=== PATIENT | male | born 1995 | race Caucasian/White ===

== ENCOUNTER 2024-10-03 09:20 | Outpatient (AMB) | payer OTHER, SELFPAY ==
--- NOTE | 2024-10-03 09:23 | A.OFFPC_ITS ---
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 Required: No Accompanied by: Self / Same As Patient Allergies No Known Allergies Allergy (Verified 10/03/24 10:44) Medication List - Last Reconciled 10/03/24 by Loida Mitchell PA-C No Known Home Meds Tobacco use date assessed: 10/03/24 Dental Screening Dental Screen Date: 10/03/24 Did you have a dental visit in the last 12 months?: No Did you have a dental problem in the last 6 months where you did not have access to dental care?: No Was dental information given to patient?: Patient has dentist HPI establish care HPI Details The patient is a 29-year-old male presenting for a annual physical examination in addition an assessment for Attention-Deficit/Hyperactivity Disorder (ADHD). The patient has not had a primary care provider since seeing Dr. Ky Akers in pediatrics and is now establishing care with a new provider. He has not pursued an ADHD diagnosis previously but is considering it due to his girlfriend's suggestion, who is a coding and reimbursement specialist. The patient reports no significant past medical history but mentions a family history of breast cancer in his mother, who is still alive. He denies any current symptoms of depression or anxiety but is open to seeing a psychiatrist for ADHD assessment. The patient has not had recent blood work and agrees to comprehensive testing, including CBC, CMP, lipid panel, liver panel, thyroid function, PSA, vitamin B12, and vitamin D. He is physically active, having previously engaged in regular running and exercise, and expresses a desire to return to these activities. 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 - Education: Previously studied criminal justice, now pursuing a career in teaching. - Family Status: Lives with girlfriend, who is a coding and reimbursement specialist. - Exercise: Previously engaged in regula r running and exercise, plans to resume. [facility] Medical History (Updated 10/03/24 @ 11:34 by Loida Mitchell PA-C) Preventative health care Annual physical exam ADHD Family History Father Afib Mother History of heart attack Social History Housing: House Patient Tobacco Use Status: Never used Tobacco service: No Current occupational status: employed Cognitive needs: No Hearing needs: No Vision needs: No Questionnaire PHQ-9 Over the last 2 weeks, how often have you been bothered by any of the following problems? 1. Little interest or pleasure in doing things: not at all 2. Feeling down, depressed, or hopeless: not at all 3. Trouble falling or staying asleep, or sleeping too much: not at all 4. Feeling tired or having little energy: not at all 5. Poor appetite or overeating: not at all 6. Feeling bad about yourself - or that you are a failure or have let yourself or your family down: not at all 7. Trouble concentrating on things, such as reading the newspaper or watching television: not at all 8. Moving or speaking so slowly that other people could have noticed. Or the opposite - being so fidgety or restless that you have been moving around a lot more than usual: not at all 9. Thoughts that you would be better off or of hurting yourself in some way: not at all Total score: 0 Depression Screening Interpretation: Negative Depression Screening Done: Yes 09777 - PHQ-9 Billing: Yes Source: Developed by Drs. Boyd Kirk, Kimberly Erickson, Bobby Osorio and colleagues, with an educational milton from [employer]. Thrive Questionnaire Date Thrive assessed: 10/03/24 I am a: Patient What is your living situation today?: I have a steady place to live Within the past 12 months, did the food you bought not last and you didn't have the money to get more?: Never true Within the past 12 months, did you worry whether your food would run out before you got money to buy more?: Never true Do you have trouble paying for medicines?: No Do you have trouble getting transportation to medical appointments?: No Do you have trouble paying your heating and electricity bill?: No Do you have trouble taking care of your child, family member or friend?: No Do you have trouble with day-to-day activities such as bathing, preparing meals, shopping, managing finances, etc.?: No Are you currently unemployed and looking for a job?: No Are you interested in more education?: No Please select the resources that you would like help with: None Currently or been in a relationship where the following occur: No concerns reported THRIVE Score: 0 AUDIT C Alcohol Use Questionnaire (AUDIT-C) 1. How often do you have a drink containing alcohol?: Never 3. How often do you have six or more drinks on one occasion?: Never Total Score: 0 Score Reviewed/Action Taken: No LYNNE-7 AMB Questionnaire LYNNE-7 Date LYNNE - 7 assessed: 10/03/24 Feeling nervous, anxious, or on edge: 0 = Not at all Not being able to stop or control worryin = Not at all Worrying too much about different things: 0 = Not at all Trouble relaxin = Not at all Being so restless that it is hard to sit still: 0 = Not at all Becoming easily annoyed or irritable: 0 = Not at all Feeling afraid as if something awful might happen: 0 = Not at all Total LYNNE-7 score (0-4 normal; 5-9 mild; 10-14 moderate; 15-21 severe): 0 Source: Developed by Drs. Boyd Kirk, Kimberly Erickson, Bobby Osorio and colleagues, with an educational milton from [employer]. LYNNE-7 Assessment Billing LYNNE-7 Assessment Tool: LYNNE-7 Assessment 20465 Review of Systems Const Details: - General: Denies unintentional weight loss. - Cardiovascular: Denies chest pain or palpitations. - Respiratory: Denies dyspnea or cough. - Gastrointestinal: Denies abdominal pain, black or bloody stools. - Genitourinary: Denies dysuria or hematuria. - Neurological: Denies headaches or dizziness. All systems reviewed & are unremarkable except as noted in HPI and below Physical exam (Primary Care) Vital Signs: Last Vital Signs Temp 97 F 10/03/24 09:30 Pulse 69 10/03/24 09:30 Resp 16 10/03/24 09:30 BP 108/56 L 10/03/24 09:30 Pulse Ox 100 10/03/24 09:30 Oxygen Delivery Method Room Air 10/03/24 09:30 Care Plan Goal for BP management: <140/90 at goal BMI result Body Mass Index 26.9 BMI Assessment/Plan discussion: High BMI High, discussed plan: lifestyle, weight reduction, dietary, physical activity, alcohol moderation and other Tobacco/Smoking Status: Tobacco use Status Tobacco use date assessed 10/03/24 10/03/24 09:26 Patient Tobacco Use Status Never used Tobacco 10/03/24 09:26 PHQ-9: PHQ-9 Score PHQ-9: Total score 0 10/03/24 09:33 Depression Screening Interpretation: Negative Thrive Assessment: Date of Thrive Assessment Date Thrive assessed 10/03/24 10/03/24 09:26 Currently or been in a relationship where the following occur: No concerns reported Const Other: Appearance: Alert. Oriented X3. No acute distress. Head: Normal external exam. Normocephalic. Atraumatic. Eyes: Pupils are equal, round, and reactive to light. Extraocular movements intact. Conjunctiva and sclera normal. Eyelids normal. Ears: External auditory canal normal. Tympanic membranes normal. Ears are very clean with no significant wax buildup. Throat: Pharynx normal. Uvula midline. Moist mucous membranes. Neck: Normal inspection. Neck supple. Full range of motion. No adenopathy. Thyroid Normal. No meningeal signs. No neck mass noted. Cardiovascular: Normal heart rate and rhythm. Heart sound normal. No murmurs noted. Pulses normal throughout. Blood pressure is a little low, possibly due to skipping coffee. Respiratory: No respiratory distress. Painless inspiration. Breath sounds normal. No wheezes/rales/rhonchi noted. Chest nontender. No accessory muscle usage noted or decreased air movement noted. Abdomen: Soft and nontender. Bowel sounds normal in all 4 quadrants. No distention noted. No organomegaly noted. No visible injury noted. No pain over the kidneys when tapped. No black or bloody stools. No unintentional weight loss. Back: No costovertebral angle tenderness. Full range of motion noted. Skin: Skin warm and dry. Normal skin color. Normal skin turgor. No rashes/lesions/lacerations noted. Extremities: No lower extremity edema. Extremities exhibit normal range of motion. Extremities nontender. Calves are well-developed, indicating regular exercise. Neuro: Oriented X 3. No motor deficit. No sensory deficit. Reflexes normal. Coding Level of Care Code New Pt Level 4 (03613) New Pt Prev Care 18-39yr(71190 Diagnoses Annual physical exam Z00.00 ADHD F90.9 Preventative health care Z00.00 Additional Codes PHQ-9 - 22687 - PHQ-9 Billing: Yes ([id number]) LYNNE-7 Assessment Billing - LYNNE-7 Assessment Tool: LYNNE-7 Assessment 52290 ([id number]) Assessment & Plan Assessment & Plan (1) Annual physical exam: Code(s): Z00.00 - Encounter for general adult medical examination without abnormal findings Category: Medical (2) ADHD: Code(s): F90.9 - Attention-deficit hyperactivity disorder, unspecified type Category: Medical Plan: The patient will be referred to Aniya Johnson, a psychiatrist, for an ADHD assessment. If ADHD is diagnosed, medication management will be considered based on the psychiatrist's recommendations. (3) Preventative health care: Code(s): Z. - Encounter for general adult medical examination without abnormal findings Category: Medical Plan: Comprehensive blood work has been ordered, including CBC, CMP, lipid panel, liver panel, thyroid function, PSA, vitamin B12, and vitamin D. The patient is advised to complete the blood work within the next month. Plan Plan Patient was informed and verbally consented to the use of an ambient scribe for clinic note documentation during this visit. 1. Attention-Deficit/Hyperactivity Disorder (Adhd) Assessment The patient will be referred to Aniya Johnson, a psychiatrist, for an ADHD assessment. If ADHD is diagnosed, medication management will be considered based on the psychiatrist's recommendations. 2. Preventative Care: Comprehensive Blood Work Comprehensive blood work has been ordered, including CBC, CMP, lipid panel, liver panel, thyroid function, PSA, vitamin B12, and vitamin D. The patient is advised to complete the blood work within the next month. I discussed with the patient the plan to refer him to Aniya Johnson for an ADHD assessment. We talked about the potential for medication management if ADHD is diagnosed. I also explained the importance of completing the comprehensive blood work within the next month to ensure a thorough health evaluation. The patient was informed that he would be contacted with results and further instructions based on the findings. Orders: Orders C Reactive Protein Today Z00.00 - Encounter for general adult medical examination without abnormal findings Comprehensive [place]. Panel Fast Today Z00.00 - Encounter for general adult medical examination without abnormal findings Hemoglobin A1c Today Z00.00 - Encounter for general adult medical examination without abnormal findings Vitamin B12 and Folate Today Z00.00 - Encounter for general adult medical examination without abnormal findings TSH reflex Free T4 Today Z00.00 - Encounter for general adult medical examination without abnormal findings PSA,Total (Free>4and<10) Today Z00.00 - Encounter for general adult medical examination without abnormal findings DHEA Sulfate Today Z00.00 - Encounter for general adult medical examination without abnormal findings Dihydrotestosterone Today Z00.00 - Encounter for general adult medical examination without abnormal findings Testosterone, Free/Total Today Z00.00 - Encounter for general adult medical examination without abnormal findings Complete Blood Count Auto Diff Today Z00.00 - Encounter for general adult medical examination without abnormal findings Lipid Panel Today Z00.00 - Encounter for general adult medical examination without abnormal findings Liver Panel Today Z00.00 - Encounter for general adult medical examination without abnormal findings Magnesium Today Z00.00 - Encounter for general adult medical examination without abnormal findings Vitamin D 25-OH Total Today Z00.00 - Encounter for general adult medical examination without abnormal findings Referrals Psychiatry Outpatient Consultation Service F90.9 - Attention-deficit hyperactivity disorder, unspecified type Patient Instructions: - Schedule an appointment with Aniya Johnson for ADHD assessment. - Complete the ordered blood work within the next month. - Follow up with the clinic for results and further instructions.
[2024-10-03 09:30] VITALS: BP 108/56; PULSE 69; RESP 16; TEMP 36.1; O2SAT 100; BMI 26.9
--- OUTSIDE RECORDS SUMMARY | 2024-10-03 10:10 | XMS_ITS | Encounter Summary ---
Author Organization [facility] Address [address] [place] [id number] Phone Care Team Providers Care Library Circulation Technician Name Role Phone Ky Akers MD Primary Care Provider [phone] Encounter Details Date Type Department Care Team (Late st Contact Info) Description 06/27/2010 Conversion Encounter [facility] [address] [place] [address] [place] [address] Social History Tobacco Use Types Packs/Day Years Used Date Smoking Tobacco: Never Assessed Sex and Gender Information Value Date Recorded Sex Assigned at Not on file Legal Sex Male 6:13 PM EDT Gender Identity Not on file Sexual Orientation Not on file documented as of this encounter Plan of Treatment Not on file documented as of this encounter Visit Diagnoses Not on filedocumented in this encounter Care Teams Library Circulation Technician Relationship Specialty Start Date End Date Ky Akers MD [address] [place] [address] [place] [address] PCP - General 06/13/17 07/01/24 documented as of this encounter
--- OUTSIDE RECORDS SUMMARY | 2024-10-03 10:10 | XMS_ITS | Clinical Summary ---
Author Organization [facility] Address [address] [facility] [address] [place] [id number] Phone Care Team Providers Care Contact Worker Name Role Phone Ky Akers MD Primary Care Provider [phone] Allergies No known active allergies Medications No known medications Active Problems Problem Noted Date Diagnosed Date Left knee pain 09/19/2017 Family History Medical History Relation Comments No Known Problems Brother Heart disease Father No Known Problems Maternal Aunt No Known Problems Maternal Grandfather No Known Problems Maternal Grandmother No Known Problems Maternal Uncle Heart disease Mother No Known Problems Paternal Aunt No Known Problems Paternal Grandfather No Known Problems Paternal Grandmother No Known Problems Paternal Uncle No Known Problems Sister Cancer Unspecified Diabetes Unspecified Heart disease Unspecified Infl. arthritis Unspecified Clotting disorder Neg Hx Collagen disease Neg Hx Depression Neg Hx Dislocations Neg Hx Gout Neg Hx Osteoporosis Neg Hx Scoliosis Neg Hx Relation Status Comments Brother Father Maternal Aunt Maternal Grandfather Maternal Grandmother Maternal Uncle Mother Paternal Aunt Paternal Grandfather Paternal Grandmother Paternal Uncle Sister Unspecified Social History Tobacco Use Types Packs/Day Years Used Date Smoking Tobacco: Never Smokeless Tobacco: Never Alcohol Use Standard Drinks/Week Comments No 0 (1 standard drink = 0.6 oz pur e alcohol) Education Answer Date Recorded Are you interested in more education? Not on marycarmen e 06/02/2022 Are you concerned about learning? Not on file 06/02/2022 No 06/02/2022 No 06/02/2022 Digital Access Answer Date Recorded No 07/03/2022 No 07/03/2022 No 07/03/2022 Reliable internet access at home? Not on file 07/03/2022 Device with a working camera? Not on file Sex and Gender Information Value Date Recorded Sex Assigned at Not on file Legal Sex Male 4:47 PM EDT Gender Identity Not on file Sexual Orientation Not on file Last Filed Vital Signs Vital Sign Reading Time Taken Comments Blood Pressure - - Pulse - - Temperature - - Respiratory Rate - - Oxygen Saturation - - Inhaled Oxygen Concentration - - Weight 97.1 kg (214 lb) 09/25/2017 8:44 AM EDT Height 190.5 cm (6' 3 ) 09/25/2017 8:44 AM EDT Body Mass Index 26.75 09/25/2017 8:44 AM EDT Plan of Treatment Health Maintenance Due Date Last Done Comments DEPRESSION SCREENING 2009 HEPATITIS C SCREENING 06/23/2015 HIV ONE-TIME SCREENING (18-65 YEARS) 06/23/2015 Adult Td,Tdap Booster 09/28/2018 09/28/2008 SMOKING STATUS SCREENING (Once After 26 Yrs) 06/23/2023 COVID-19 VACCINE ( season) 2023 HIB VACCINES Completed 09/24/1998, 12/08, 1997, Additional history exists MENINGOCOCCAL VACCINES (ACWY) Completed 08/28/2014, 09/28/2008 HEPATITIS A VACCINES Aged Out 09/04/2017 No long er eligible based on patient's age to complete this topic MENINGOCOCCAL VACCINES (B) Aged Out N o longer eligible based on patient's age to complete this topic PNEUMOCOCCAL VACCINES (0-49 years) Aged Out No longer eligible based on patient's age to complete this topic Medical Devices Not on file Insurance [facility] PPO [employer]IG[employer] PPO CIG[employer] PPO [employer] PPO [place] CIGNA PPO CIGNA PPO [facility] Care Teams Contact Worker Relationship Specialty Start Date End Date Ky Akers MD [facility] [place] [address] PCP - General Pediatrics 08/01/17 Additional Source Comments The information contained in this document represents components of the legal health record. It is not the complete legal health record.[facility]
--- OUTSIDE RECORDS SUMMARY | 2024-10-03 10:10 | XMS_ITS | Clinical Summary ---
Author Organization [facility] Address [address] [place] [address] Phone Care Team Providers Care Manager Area Name Role Phone Unavailable Primary Care Provider Unavailabl e Allergies No known active allergies Medications No known medications Active Problems Problem Noted Date Diagnosed Date Influenza vaccine refused 11/01/2021 Well adult exam 09/04/2017 Need for vaccination 09/04/2017 Concussion with no loss of consciousness 015 Overview (09/04/2017): Concussion without LOC (850.0) Onset: 11/02/2014 Added by: Sangeeta Robert Immunizations Immunization Administration Dates Next Due DTaP 5 07/04/2002, 9,01/04/1998,11/19,1997 HPV Vaccine 9 Valent 08/28/2014 HPV, Quadrivalent 10/02/2013,10/01/2012 Hep A, Adult 09/05/2018,09/04/2017 Hep B, ped/adol 01/04/1998,1997,1997 Hib (PRP-T) 09/24/1998, 8,1997,09/01 IPV 07/04/2002, 9,1997,09/01 Influenza, injectable, trivalent 10/01/2012,09/06,09/28/2009 Influenza, injectable, triva lent, preservative free 09/28/2010 MMR 07/04/2002,06/29/1998 Meningococcal Conj (Menactra) MCV4P 08/28/2014,0 09/28/2008 Tdap 09/05/2018,09/28/2008 Varicella 09/28/2008,06/29/1998 Family History Medical History Relation Name Comments No Known Problems Brother Brian Heart disease Father Celina Breast cancer Mother Jeffrey Heart attack Mother Jeffrey No Known Problems Sister 1 Isabela No Known Problems Sister 2 Yarely Relation Name Status Comments Brother Brian Alive Father Celina Alive Mother Jeffrey Alive Sister 1 Isabela Alive Sister 2 Yarely Alive Social History Tobacco Use Types Packs/Day Years Used Date Smoking Tobacco: Never Smokeless Tobacco: Never Comments:Never Smoker Alcohol Use Standard Drinks/Week Comments No 0 (1 standard drink = 0.6 oz pur e alcohol) Hunger/Food Answer Date Recorded In the last 12 months, did y ou or your family ever eat less than you felt you should because there wasn't enough money for food? No 09/13/2020 Stable Housing Answer Date Recorded Are you worried that in the next 2 months you may not have stable housing? No 09/13/2020 Transportation Concerns Answer Date Rec orded In the last 12 months, have you or your family ever had to go without healthcare because you didn't have a way to get there? No 09/13/2020 Hazards in Home Answer Date Recorded Think about the place you li ve. Do you have problems with any of the following? Pests (mice or roaches), mold, no/not working smoke detectors, water leaks, no window guards. No 2020 Financing Utilities Answer Date Recorde d In the last 12 months, has t he electric, gas, oil, or water company threatened to shut off your services in your home? No 09/13/2020 Safety at Home Answer Date Recorded Are you or your family worried about feeling saf e in your home? No 09/13/2020 Outside Support Answer Date Recorded Do you feel that you need mo re support from other people or programs to help you care for yourself or your family? No 09/13/2020 Understanding Health Concerns Answer Da te Recorded Do you need help understandi ng your or your child's healthcare needs (diagnosis, medications, plan, etc.)? No 09/13/2020 Financing Health Concerns Answer Date R ecorded In the last 12 months, was t here a time when your child needed to see a doctor or get medications or supplies but could not because of cost? No 09/13/2020 Missing School or Work Answer Date Jamal rded Did you or your child miss s chool or work because of a health problem that could have been avoided? No 09/13/2020 Sex and Gender Information Value Date Recorded Sex Assigned at Not on file Legal Sex Male 6:13 PM EDT Gender Identity Not on file Sexual Orientation Not on file Last Filed Vital Signs Vital Sign Reading Time Taken Comments Blood Pressure 118/60 11/01/2021 9:57 AM EDT Pulse 74 11/01/2021 9:57 AM EDT Temperature 36.2 C (97.2 F) 11/01/2021 9:57 AM EDT Respiratory Rate - - Oxygen Saturation - - Inhaled Oxygen Concentration - - Weight 87.6 kg (193 lb 1.6 oz) 11/01/2021 9:57 A M EDT Height 186 cm (6' 1.23 ) 11/01/2021 9:57 AM EDT Body Mass Index 25.32 11/01/2021 9:57 AM EDT Plan of Treatment Health Maintenance Due Date Last Done Comments COVID-19 Vaccine ( season) 2023 Influenza Vaccines (#1) 2024 10/02/19 13, 09/29/2011, 09/28/2010, Additional history exists DTaP,Tdap,and Td Vaccines (8 - Td or Tdap) 09/05/2028 09/05/2018, 09/28/2008, 07/04/2002, Additional history exists Hepatitis B Vaccines Completed 01/04/1998, 1997, 1997 HIB Vaccines Completed 09/24/1998, 12/08, 1997, Additional history exists IPV Vaccines Completed 07/04/2002, 12/07, 1997, Additional history exists MMR Vaccines Completed 07/04/2002, 06/29/1998 Varicella Vaccines Completed 09/28/2008, 06/29/1998 HPV Vaccines Completed 08/28/2014, 09/06, 10/01/2012 Meningococcal Vaccine Completed 08/28/2014, 009 Hepatitis A Vaccines Aged Out 09/05/2018, 09/05/19 20 No longer eligible based on patient's age to complete this topic Men B Vaccine Aged Out No longer elig ible based on patient's age to complete this topic Pneumococcal Vaccine Aged Out No long er eligible based on patient's age to complete this topic Insurance [facility]
== END 2024-10-03 10:37 | disposition home or self-care (01) ==
LOC: HO.HMCSH 09:20
PROVIDERS: PCP Pediatrics; Visit Provider Physician Assistant Medical
DX: Z00.00 Encounter for general adult medical examination without abnormal findings (principal); F90.9 Attention-deficit hyperactivity disorder, unspecified type

== ENCOUNTER → 2024-10-03 09:20 | Outpatient (BNVA) | payer OTHER, SELFPAY | PROVIDERS: PCP Pediatrics; Visit Provider Physician Assistant Medical | DX: Z00.00 Encounter for general adult medical examination without abnormal findings (principal); F90.9 Attention-deficit hyperactivity disorder, unspecified type | CPT/HCPCS: 96127 ==